=== PATIENT | female | born 1960 | race Caucasian/White ===

== ENCOUNTER 2024-04-10 10:51 | Inpatient (IN) | payer BC ==
--- OUTSIDE RECORDS SUMMARY | 2024-04-10 10:54 | XMS REPORT | Continuity of Care Document ---
Author Name Unknown Address [address] [place] [address] thconnect Address [address] [place] [address] [address] [place] [address] Care Team Providers Care Ticket Writer Name Role Phone A_Byrd Attending Clinician Unavailable GERONIMO RODRIGUEZ Attending Clinician Unavailable A_Byrd Admitting Clinician Unavailable Payers Payer Name Policy Type Policy Number Effective Date Expirati on Date Source [place] [id number] 2022 00:00:00 [place] [id number] 2015 00:00:00 Problems Condition Name Condition Details Condition Category Status Onset Date Resolution Date Last Treatment Date Treating Clinician Comments Source Diabetic peripheral neuropathy Diabetic Peripheral Neuropathy Problem Active 03-14 00:00: 00 [facility] Type 2 diabetes mellitus without complicati on Type 2 Diabetes Mellitus without Complicati on Problem Active 05-08 00:00: 00 [facility] Mixed hyperlipid emia Mixed Hyperlipid emia Problem Active 2022-02 00:00: 00 [facility] Uncontroll ed type 2 diabetes mellitus Uncontroll ed Type 2 Diabetes Mellitus Problem Active 2022-02 2 00:00: 00 [facility] Adult health examinatio n Adult Health Examinatio n Problem Active 07-19 00:00: 00 [facility] Neuropathy Neuropathy Problem Active 06-08 00:00: 00 [facility] Restless legs Restless Legs Problem Active [facility] Benign hypertensi on Benign Hypertensi on Problem Active [facility] Osteoarthr itis of knee Osteoarthr itis of Knee Problem Active [facility] Social History Smoking Status Start Date Stop Date Source Never Smoker [facility] Medications Ordered Medication Name Filled Medication Name Start Date Stop Date Current Medication? Ordering Clinician Indication Dosage Frequency Signature (SIG) Comments Components Source amitriptyli ne 25 mg tablet TAKE ONE (1) TABLET(S) BY MOUTH AT BEDTIME. amitriptyli ne 25 mg tablet TAKE ONE (1) TABLET(S) BY MOUTH AT BEDTIME. No amitriptyl ine 25 mg tablet TAKE ONE (1) TABLET(S) BY MOUTH AT BEDTIME. [facility] atorvastati n 10 mg tablet TAKE ONE (1) TABLET(S) BY MOUTH EVERY DAY. atorvastati n 10 mg tablet TAKE ONE (1) TABLET(S) BY MOUTH EVERY DAY. No atorvastat in 10 mg tablet TAKE ONE (1) TABLET(S) BY MOUTH EVERY DAY. [facility] carbidopa ER 25 mg-levodopa 100 mg tablet,exte nded release TAKE TWO (2) TABLET(S) BY MOUTH DAILY. carbidopa ER 25 mg-levodopa 100 mg tablet,exte nded release TAKE TWO (2) TABLET(S) BY MOUTH DAILY. No carbidopa ER 25 mg-levodop a 100 mg tablet,ext ended release TAKE TWO (2) TABLET(S) BY MOUTH DAILY. [facility] carvedilol 12.5 mg tablet TAKE ONE (1) TABLET(S) BY MOUTH TWICE A DAY. carvedilol 12.5 mg tablet TAKE ONE (1) TABLET(S) BY MOUTH TWICE A DAY. No carvedilol 12.5 mg tablet TAKE ONE (1) TABLET(S) BY MOUTH TWICE A DAY. [facility] diclofenac sodium 75 mg tablet,kevin yed release TAKE ONE (1) TABLET(S) BY MOUTH TWICE A DAY. diclofenac sodium 75 mg tablet,kevin yed release TAKE ONE (1) TABLET(S) BY MOUTH TWICE A DAY. No diclofenac sodium 75 mg tablet,del ayed release TAKE ONE (1) TABLET(S) BY MOUTH TWICE A DAY. [facility] gabapentin 600 mg tablet TAKE ONE (1) TABLET(S) BY MOUTH FOUR TIMES A DAY. gabapentin 600 mg tablet TAKE ONE (1) TABLET(S) BY MOUTH FOUR TIMES A DAY. No gabapentin 600 mg tablet TAKE ONE (1) TABLET(S) BY MOUTH FOUR TIMES A DAY. [facility] lidocaine 5 % topical patch APPLY 1 PATCH BY TRANSDERMAL ROUTE ONCE DAILY (MAY WEAR UP TO 12HOURS.) lidocaine 5 % topical patch APPLY 1 PATCH BY TRANSDERMAL ROUTE ONCE DAILY (MAY WEAR UP TO 12HOURS.) No lidocaine 5 % topical patch APPLY 1 PATCH BY TRANSDERMA L ROUTE ONCE DAILY (MAY WEAR UP TO 12HOURS.) [facility] morphine ER 30 mg tablet,exte nded release TAKE ONE (1) TABLET BY MOUTH TWO TO THREE TIMES A DAY NEEDED. morphine ER 30 mg tablet,exte nded release TAKE ONE (1) TABLET BY MOUTH TWO TO THREE TIMES A DAY NEEDED. No morphine ER 30 mg tablet,ext ended release TAKE ONE (1) TABLET BY MOUTH TWO TO THREE TIMES A DAY NEEDED. [facility] glipizide 10 mg tablet TAKE ONE (1) TABLET(S) BY MOUTH TWICE A DAY. glipizide 10 mg tablet TAKE ONE (1) TABLET(S) BY MOUTH TWICE A DAY. No glipizide 10 mg tablet TAKE ONE (1) TABLET(S) BY MOUTH TWICE A DAY. [facility] Januvia 100 mg tablet TAKE ONE (1) TABLET(S) BY MOUTH ONCE A DAY. Januvia 100 mg tablet TAKE ONE (1) TABLET(S) BY MOUTH ONCE A DAY. No Januvia 100 mg tablet TAKE ONE (1) TABLET(S) BY MOUTH ONCE A DAY. [facility] FreeStyle Carrie 3 Sensor device USE DIRECTED TO MONITOR BLOOD SUGAR AND CHANGE SENSOR EVERY 14 DAYS. FreeStyle Carrie 3 Sensor device USE DIRECTED TO MONITOR BLOOD SUGAR AND CHANGE SENSOR EVERY 14 DAYS. No FreeStyle Carrie 3 Sensor device USE DIRECTED TO MONITOR BLOOD SUGAR AND CHANGE SENSOR EVERY 14 DAYS. [facility] glipizide 5 mg tablet TAKE ONE (1) TABLET(S) BY MOUTH TWICE A DAY. glipizide 5 mg tablet TAKE ONE (1) TABLET(S) BY MOUTH TWICE A DAY. No glipizide 5 mg tablet TAKE ONE (1) TABLET(S) BY MOUTH TWICE A DAY. [facility] Ozempic 0.25 mg or 0.5 mg (2 mg/1.5 mL) subcutaneou s pen injector Inject 0.5 mg every week by subcutaneou s route. Ozempic 0.25 mg or 0.5 mg (2 mg/1.5 mL) subcutaneou s pen injector Inject 0.5 mg every week by subcutaneou s route. No .5mg Q1W Ozempic 0.25 mg or 0.5 mg (2 mg/1.5 mL) subcutaneo us pen injector Inject 0.5 mg every week by subcutaneo us route. [facility] Ozempic 0.25 mg or 0.5 mg (2 mg/3 mL) subcutaneou s pen injector INJECT 0.5 MG UNDER THE SKIN ONCE EVERY WEEK. Ozempic 0.25 mg or 0.5 mg (2 mg/3 mL) subcutaneou s pen injector INJECT 0.5 MG UNDER THE SKIN ONCE EVERY WEEK. No Ozempic 0.25 mg or 0.5 mg (2 mg/3 mL) subcutaneo us pen injector INJECT 0.5 MG UNDER THE SKIN ONCE EVERY WEEK. [facility] Ozempic 1 mg/dose (2 mg/1.5 mL) subcutaneou s pen injector Inject 1 mg every week by subcutaneou s route as directed. Ozempic 1 mg/dose (2 mg/1.5 mL) subcutaneou s pen injector Inject 1 mg every week by subcutaneou s route as directed. No 1mg Q1W Ozempic 1 mg/dose (2 mg/1.5 mL) subcutaneo us pen injector Inject 1 mg every week by subcutaneo us route as directed. [facility] Ozempic 1 mg/dose (4 mg/3 mL) subcutaneou s pen injector INJECT ONE (1) MG BY SUBCUTANEOU S ONCE A WEEK. Ozempic 1 mg/dose (4 mg/3 mL) subcutaneou s pen injector INJECT ONE (1) MG BY SUBCUTANEOU S ONCE A WEEK. No Ozempic 1 mg/dose (4 mg/3 mL) subcutaneo us pen injector INJECT ONE (1) MG BY SUBCUTANEO US ONCE A WEEK. [facility] Immunizations Ordered Immunization Name Filled Immunization Name Date Status Comments Source influenza, injectable, quadrivalent, preservative free influenza, injectable, quadrivalent, preservative free Unknown Completed [facility] influenza, injectable, quadrivalent influenza, injectable, quadrivalent Unknown Completed [facility] Vital Signs Vital Name Observation Time Observation Value Comments Yuval chamberlain Body Weight 2024-03-14 00:00:00 2932.8 [oz_av] [facility] Height 2024-03-14 00:00:00 66 [in_i] [facility] BMI (Body Mass Index) 2024-03-14 00:00:00 29.6 kg/m2 [facility] BP Systolic 2024-03-14 00:00:00 141 mm[Hg] [facility] BP Diastolic 2024-03-14 00:00:00 87 mm[Hg] [facility] BMI (Body Mass Index) 2023-12-13 00:00:00 30.5 kg/m2 [facility] Body Weight 2023-12-13 00:00:00 3022.4 [oz_av] [facility] Height 2023-12-13 00:00:00 66 [in_i] [facility] BP Diastolic 2023-12-13 00:00:00 83 mm[Hg] [facility] BP Systolic 2023-12-13 00:00:00 161 mm[Hg] [facility] BP Diastolic 2023-09-12 00:00:00 78 mm[Hg] [facility] Body Weight 2023-09-12 00:00:00 3068.8 [oz_av] [facility] BP Systolic 2023-09-12 00:00:00 141 mm[Hg] [facility] Height 2023-09-12 00:00:00 66 [in_i] [facility] BMI (Body Mass Index) 2023-09-12 00:00:00 31 kg/m2 [facility] BMI (Body Mass Index) 2023-05-09 00:00:00 30.6 kg/m2 [facility] BP Diastolic 2023-05-09 00:00:00 78 mm[Hg] [facility] Height 2023-05-09 00:00:00 66 [in_i] [facility] Body Weight 2023-05-09 00:00:00 3036.8 [oz_av] [facility] BP Systolic 2023-05-09 00:00:00 143 mm[Hg] [facility] Body Weight 2023-01-10 00:00:00 3060.8 [oz_av] [facility] BP Diastolic 2023-01-10 00:00:00 77 mm[Hg] [facility] BMI (Body Mass Index) 2023-01-10 00:00:00 30.9 kg/m2 [facility] BP Systolic 2023-01-10 00:00:00 147 mm[Hg] [facility] Height 2023-01-10 00:00:00 66 [in_i] [facility] BP Diastolic 2022-12-13 00:00:00 92 mm[Hg] [facility] BP Systolic 2022-12-13 00:00:00 171 mm[Hg] [facility] Body Weight 2022-12-13 00:00:00 3068.8 [oz_av] [facility] BMI (Body Mass Index) 2022-12-13 00:00:00 31 kg/m2 [facility] Height 2022-12-13 00:00:00 66 [in_i] [facility] BP Diastolic 2021-11-10 00:00:00 105 mm[Hg] [facility] BP Systolic 2021-11-10 00:00:00 181 mm[Hg] [facility] Body Weight 2021-11-10 00:00:00 3196.8 [oz_av] [facility] BP Diastolic 2020-07-09 00:00:00 95 mm[Hg] [facility] Height 2020-07-09 00:00:00 66 [in_i] [facility] BMI (Body Mass Index) 2020-07-09 00:00:00 32.8 kg/m2 [facility] BP Systolic 2020-07-09 00:00:00 155 mm[Hg] [facility] Body Weight 2020-07-09 00:00:00 3251.2 [oz_av] [facility] BP Diastolic 2019-08-22 00:00:00 106 mm[Hg] [facility] Height 2019-08-22 00:00:00 66 [in_i] [facility] BP Systolic 2019-08-22 00:00:00 186 mm[Hg] [facility] Body Weight 2019-08-22 00:00:00 3408 [oz_av] [facility] Procedures Procedure Date / Time Performed Performing Clinicia n Source MAMMO, screening, digital, bilateral 2024-03-14 00:00:00 [facility] MAMMO, screening, digital, bilateral 2022-12-13 00:00:00 [facility] Encounters Start Date/Time End Date/Time Encounter Type Admission Type Attending [facility] Care Facility Care Department Encounter ID Source 2024-03-14 00:00:00 2024-03-14 00:00:00 Geronimo Rodriguez MD: [address], [address], [place] [id number] , Ph. MM[facility] [id number] [facility] 2023-12-13 00:00:00 2023-12-13 00:00:00 Geronimo Rodriguez MD: [address], [address], [place] [id number] , Ph. MMG [facility] [id number] [facility] 2023-09-12 00:00:00 2023-09-12 00:00:00 Geronimo Rodriguez MD: [address] [facility], [address], [place] [id number] , Ph. MMG [facility] 0806 [facility] 2023-05-09 00:00:00 2023-05-09 00:00:00 Geronimo Rodriguez MD: [address] [facility], [address], [place] [address] , [facility]. [facility] [id number] [facility] 2023-05-06 00:00:00 2023-05-06 00:00:00 Outpatient A_Byrd [facility] [id number] [facility] 2023-04-20 00:00:00 2023-04-20 00:00:00 Outpatient A_Byrd [facility] [id number] [facility] 2023-04-18 08:13:00 2023-04-18 08:13:00 Outpatient GERONIMO LOCKWOOD [facility] [id number] [facility] 2023-01-12 00:00:00 2023-01-12 00:00:00 Outpatient A_Byrd [facility] [id number] [facility] 2023-01-10 00:00:00 2023-01-10 00:00:00 Outpatient A_Byrd MM[facility] [id number] [facility] 2023-01-10 00:00:00 2023-01-10 00:00:00 Geronimo Rodriguez MD: [address] [place] [address], [address], [place] [address] , Ph. [facility] [id number] [facility] 2022-12-13 09:57:00 2022-12-13 09:57:00 Outpatient GERONIMO LOCKWOOD [facility] [id number] [facility] 2022-12-13 00:00:00 2022-12-13 00:00:00 Outpatient A_Byrd [facility] [id number] [facility] 2022-12-13 00:00:00 2022-12-13 00:00:00 Geronimo Rodriguez MD: [address] [facility], [address], [place] [address] , Ph. [facility] [id number] [facility] 2022-12-08 00:00:00 2022-12-08 00:00:00 Outpatient A_Byrd [facility] [id number] [facility] 2021-11-10 00:00:00 2021-11-10 00:00:00 Outpatient A_Byrd [facility] [id number] [facility] 2021-11-10 00:00:00 2021-11-10 00:00:00 Geronimo Rodriguez MD: [address] [facility] [address], [place] [address] , Ph. [facility] [id number] [facility] 2021-11-08 00:00:00 2021-11-08 00:00:00 Outpatient A_Byrd [facility] [id number] [facility] 2021-10-12 00:00:00 2021-10-12 00:00:00 Outpatient A_Byrd [facility] [id number] [facility] 2020-09-24 01:31:00 2020-09-24 01:31:00 Outpatient A_Byrd [facility] [id number] [facility] 2020-08-20 02:14:00 2020-08-20 02:14:00 Outpatient A_Byrd [facility] [id number] [facility] 2020-07-17 01:03:00 2020-07-17 01:03:00 Outpatient A_Byrd [facility] [id number] [facility] 2020-07-09 04:55:00 2020-07-09 04:55:00 Outpatient A_Byrd [facility] [id number] [facility] 2020-07-09 00:00:00 2020-07-09 00:00:00 Geronimo Rodriguez MD: [address] [place] [address] [address] [id number] , Ph. [facility] [id number] [facility] 2019-12-25 02:33:00 2019-12-25 02:33:00 Outpatient A_Byrd [facility] [id number] [facility] 2019-11-05 03:57:00 2019-11-05 03:57:00 Outpatient A_Byrd [facility] [id number] [facility] 2019-08-22 05:46:00 2019-08-22 05:46:00 Outpatient A_Byrd [facility] [id number] [facility] 2019-08-22 00:00:00 2019-08-22 00:00:00 Geronimo Rodriguez MD: [address] [place] [address] [address], [place] [address] , Ph. [facility] [id number] [facility] 2019-08-13 09:29:00 2019-08-13 09:29:00 Outpatient A_Byrd [facility] [id number] [facility] 2017-07-19 10:14:00 2017-07-19 10:14:00 Outpatient GERONIMO LOCKWOOD [facility] [id number] [facility] 2015-11-24 11:12:00 2015-11-24 11:12:00 Outpatient GERONIMO LOCKWOOD [facility] [id number] [facility] Results Test Description Test Time Test Comments Results Result Co mments Source FASTING:[facility] [id number] 16:36:00* Test Item Value Reference Range Interpretation Comme nts CREATININE, RANDOM URINE (test code = 35611164) 38 mg/dL 20-275 N ALBUMIN, URINE (test code = 93264771) 0.6 mg/dL N Reference RangeN ot established ALBUMIN/CREATIN INE RATIO, RANDOM URINE (test code = 33598237) 16 mg/g creat <30 N The ADA defines abnormalities in albuminexcretion as follows: Albuminuria Category Result (mg/g creatinine) Normal to Mildly increased <30Moderately increased 30-299 Severely increased > OR = 300 The ADA recommends that at least two of threespecimens collected within a 3-6 month period beabnormal before considering a patient to bewithin a diagnostic category. SPLIT 11/27/2023 FROM [id number] GRENADALIPID [id number] 23:13:00* Test Item Value Reference Range Interpretation Comme nts CHOLESTEROL, TOTAL (test code = 31953610) 154 mg/dL <200 N HDL CHOLESTEROL (test code = 13194685) 41 mg/dL >=50 L TRIGLYCERIDES (test code = 72068874) 185 mg/dL <150 H LDL-CHOLESTEROL (test code = 09133160) 85 mg/dL (calc) N Reference range: <100 Desirable range <100 mg/dL for primary prevention; <70 mg/dL for patients with CHD or diabetic patients with > or = 2 CHD risk factors. LDL-C is now calculated using the Vincenzo-Cortes calculation, which is a validated novel method providing better accuracy than the Friedewald equation in the estimation of LDL-C. Vincenzo SS et al. LEAH. 2013;310(19): 7687-2458 (http://education.[employer]Minteos /faq/ROF777) CHOL/HDLC RATIO (test code = 74917357) 3.8 (calc) <5.0 N NON HDL CHOLESTEROL (test code = 81046277) 113 mg/dL (calc) <130 N For patients with diabetes plus 1 major ASCVD risk factor, treating to a non-HDL-C goal of <100 mg/dL (LDL-C of <70 mg/dL) is considered a therapeutic option. FASTING:YESPATIENT UNABLE TO VOID; ADVISED TO RETURN FOR COLLECTION.[facility]NADACOMP META [id number] 23:13:00* Test Item Value Reference Range Interpretation Comme nts GLUCOSE (test code = 79449814) 213 mg/dL 65-99 H Fasting referenc e interval For someone without known diabetes, a glucosevalue >125 mg/dL indicates that they may havediabetes and this should be confirmed with afollow-up test. UREA NITROGEN (BUN) (test code = 69219450) 18 mg/dL 7-25 N CREATININE (test code = 58581144) 0.54 mg/dL 0.50-1.05 N EGFR (test code = 08052671) 105 mL/min/1.73m2 >=60 N BUN/CREATININE RATIO (test code = 94930319) SEE NOTE: (calc) 6-22 N Not Reported: BUN and Creatinine are within reference range. SODIUM (test code = 98819700) 136 mmol/L 135-146 N POTASSIUM (test code = 99215956) 4.5 mmol/L 3.5-5.3 N CHLORIDE (test code = 60714240) 101 mmol/L 98-110 N CARBON DIOXIDE (test code = 53805928) 28 mmol/L 20-32 N CALCIUM (test code = 17787464) 9.2 mg/dL 8.6-10.4 N PROTEIN, TOTAL (test code = 13273048) 6.3 g/dL 6.1-8.1 N ALBUMIN (test code = 25605553) 3.5 g/dL 3.6-5.1 L GLOBULIN (test code = 92257999) 2.8 g/dL (calc) 1.9-3.7 N ALBUMIN/GLOBULIN RATIO (test code = 49529695) 1.3 (calc) 1.0-2.5 N BILIRUBIN, TOTAL (test code = 57120510) 0.4 mg/dL 0.2-1.2 N ALKALINE PHOSPHATASE (test code = 54630443) 68 U/L 37-153 N AST (test code = 53351786) 7 U/L 10-35 L ALT (test code = 13433917) 5 U/L 6-29 L FASTING:YESPATIENT UNABLE TO VOID; ADVISED TO RETURN FOR COLLECTION.[facility]NADAHEMOGLOBIN [id number] 23:13:00* Test Item Value Reference Range Interpretation Comme nts HEMOGLOBIN A1c (test code = 46569673) 9.4 % of total Hgb <5.7 H For someone without known diabetes, a hemoglobin T3edektu of 6.5% or greater indicates that they may have diabetes and this should be confirmed with a follow-up test. For someone with known diabetes, a value <7% indicates that their diabetes is well controlled and a value greater than or equal to 7% indicates suboptimal control. A1c targets should be individualized based on duration of diabetes, age, comorbid conditions, and other considerations. Currently, no consensus exists regarding use ofhemoglobin A1c for diagnosis of diabetes for children. FASTING:YESPATIENT UNABLE TO VOID; ADVISED TO RETURN FOR COLLECTION.[facility]DAHEMOGLOBIN [id number] 23:28:00* Test Item Value Reference Range Interpretation Comments HEMOGLOBIN A1c (test code = 95574194) 9.5 % of total Hgb <5.7 H For someone without known diabetes, a hemoglobin Z2ibmlyk of 6.5% or greater indicates that they may have diabetes and this should be confirmed with a follow-up test. For someone with known diabetes, a value <7% indicates that their diabetes is well controlled and a value greater than or equal to 7% indicates suboptimal control. A1c targets should be individualized based on duration of diabetes, age, comorbid conditions, and other considerations. Currently, no consensus exists regarding use ofhemoglobin A1c for diagnosis of diabetes for children. This test was performed on the Kelechi annemarie c503 platform.Effective 12/19/22, a change in test platforms from theGravity Jack to the Kelechi annemarie c503 may have [id number] results compared to historical results.Based [facility], the Kelechi platform relative to the SCIenergy had an average increase in HbA1c value of< or = 0.3%. This difference is within accepted variability established by the National GlycohemoglobinStandardization Program. Note that not all individualswill have had a shift in their results and directcomparisons between historical and current results fortesting conducted on different platforms is notrecommended. FASTING:[facility] [id number] 11:21:00* Test Item Value Reference Range Interpretation Comme nts Hemoglobin A1c/Hemoglobin.to greg in Blood (test code = 4548-4) 8.8 % 4.0-6.0 H [facility] - Serum or Plasma 2023-04-18 11:05:00* Test Item Value Reference Range Interpretation Comme nts glucose (test code = glucose) 248 mg/dL 82-115 H blood urea nitrogen (test co de = blood urea nitrogen) 12 mg/dL 8-23 osmolality calculated,serum (test code = osmolality calculated,serum) 280 mOsm/kg 280-300 creatinine (test code = creatinine) 0.50 mg/dL 0.50-0.90 glomerular filtration rate ( test code = glomerular filtration rate) > 60.00 BUN/creatinine ratio (test c ode = BUN/creatinine ratio) 24.0 12.0-20.0 H sodium level (test code = so dium level) 136 mmol/L 135-145 potassium level (test code = potassium level) 4.5 mmol/L 3.5-5.2 chloride level (test code = chloride level) 99 mmol/L 98-108 CO2 (test code = CO2) 26 mmol/L 21-32 anion gap (test code = anion gap) 15.5 mEq/L 12.0-20.0 calcium level (test code = calcium level) 9.6 mg/dL 8.8-10.2 total protein (test code = t otal protein) 7.3 g/dL 6.6-8.7 albumin (test code = albumin) 4.0 g/dL 3.5-5.2 globulin (test code = globulin) 3.3 g/dL 1.5-4.5 A/G ratio (test code = A/G ratio) 1.2 >1.0 bilirubin,total (test code = bilirubin,total) 0.6 mg/dL 0.0-1.2 AST/SGOT (test code = AST/SGOT) 9 U/L 15-32 L ALT/SGPT (test code = ALT/SGPT) 6 U/L 0-33 alkaline phosphatase, total (test code = alkaline phosphatase, total) 80 U/L 35-105 [facility] [id number] 11:05:00* Test Item Value Reference Range Interpretation Comme nts cholesterol level (test code = cholesterol level) 170 mg/dL 150-200 triglycerides level (test co de = triglycerides level) 172 mg/dL <150 H HDL cholesterol (test code = HDL cholesterol) 45 mg/dL >65 L Cholesterol in LDL [Mass/vol ume] in Serum or Plasma (test code = 2089-1) 108 mg/dL <100 H cholesterol risk ratio (test code = cholesterol risk ratio) 3.777 [facility] [Mass/volume] in [id number] 00:00:00* Test Item Value Reference Range Interpretation Comme nts microalbumin random (test co de = microalbumin random) < 12.0 0-20 [facility] stimulating hormone [id number] 12:31:00* Test Item Value Reference Range Interpretation Comme nts thyroid stimulating hormone L (test code = thyroid stimulating hormone L) 0.23 uIU/mL 0.36-3.74 L [facility]ine pres id [id number] 12:26:00* Test Item Value Reference Range Interpretation Comme [facility] culture,urine (test code = culture,urine) specimen has been received in lab and IS in progress. [facility] [id number] 12:17:00* Test Item Value Reference Range Interpretation Comme [facility] Hemoglobin A1c/Hemoglobin.to greg in Blood (test code = 4548-4) 11.0 % 4.0-6.0 [facility] - Serum or Plasma 2022-12-13 12:13:00* Test Item Value Reference Range Interpretation Comme [facility] glucose (test code = glucose) 332 mg/dL 82-115 H blood urea nitrogen (test co de = blood urea nitrogen) 15 mg/dL 8-23 osmolality calculated,serum (test code = osmolality calculated,serum) 282 mOsm/kg 280-300 creatinine (test code = creatinine) 0.53 mg/dL 0.50-0.90 glomerular filtration rate ( test code = glomerular filtration rate) > 60.00 BUN/creatinine ratio (test c ode = BUN/creatinine ratio) 28.3 12.0-20.0 H sodium level (test code = so dium level) 134 mmol/L 135-145 L potassium level (test code = potassium level) 4.3 mmol/L 3.5-5.2 chloride level (test code = chloride level) 99 mmol/L 98-108 CO2 (test code = CO2) 25 mmol/L 21-32 anion gap (test code = anion gap) 14.3 mEq/L 12.0-20.0 calcium level (test code = calcium level) 9.4 mg/dL 8.8-10.2 total protein (test code = t otal protein) 6.8 g/dL 6.6-8.7 albumin (test code = albumin) 3.8 g/dL 3.5-5.2 globulin (test code = globulin) 3.0 g/dL 1.5-4.5 A/G ratio (test code = A/G ratio) 1.3 >1.0 bilirubin,total (test code = bilirubin,total) 0.5 mg/dL 0.0-1.2 AST/SGOT (test code = AST/SGOT) 8 U/L 15-32 L ALT/SGPT (test code = ALT/SGPT) 9 U/L 0-33 alkaline phosphatase, total (test code = alkaline phosphatase, total) 86 U/L 35-105 [facility] [id number] 12:13:00* Test Item Value Reference Range Interpretation Comme nts cholesterol level (test code = cholesterol level) 178 mg/dL 150-200 triglycerides level (test co de = triglycerides level) 232 mg/dL <150 H HDL cholesterol (test code = HDL cholesterol) 49 mg/dL >65 L Cholesterol in LDL [Mass/vol ume] in Serum or Plasma (test code = 2089-1) 114 mg/dL <100 H cholesterol risk ratio (test code = cholesterol risk ratio) 3.632 [id number] 11:37:00* Test Item Value Reference Range Interpretation Comme nts color, urine (test code = color, urine) light yellow appearance, urine (test code = appearance, urine) clear clear urine glucose (test code = urine glucose) 4+ (1000 mg/dL) negative bilirubin, urine (test code = bilirubin, urine) negative negative ketone, urine (test code = ketone, urine) negative negative specific gravity,urine (test code = specific gravity,urine) 1.040 1.003-1.030 H blood urine (test code = blood urine) negative negative pH,urine (test code = pH,urine) 5.000 5-9 protein urine (UA) (test cod e = protein urine (UA)) negative negative urobilinogen, urine (test code = urobilinogen, urine) normal 0.2-1.0 nitrate, urine (test code = nitrate, urine) negative negative urine leukocyte esterase (test code = urine leukocyte esterase) 1+ negative A urine culture added? (test code = urine culture added?) yes [facility] W Auto Differential panel - [id number] 11:24:00 * Test Item Value Reference Range Interpretation Comme nts white blood count (test code = white blood count) 10.9 K/uL 4.0-11.5 red blood count (test code = red blood count) 4.37 M/uL 3.80-5.20 hemoglobin (test code = hemoglobin) 13.9 g/dL 10.5-15.7 hematocrit (test code = hematocrit) 40.2 % 34.0-50.0 mean corpuscular volume (sheila t code = mean corpuscular volume) 92.0 fL 86.0-100.0 mean corpuscular hemoglobin (test code = mean corpuscular hemoglobin) 31.8 pg 26.2-33.4 mean corpuscular HGB conc (t est code = mean corpuscular HGB conc) 34.6 g/dL 30.0-34.0 H red cell distribution width (test code = red cell distribution width) 12.3 % 12.0-15.5 platelet count (test code = platelet count) 250 K/uL 165-450 mean platelet volume (test c ode = mean platelet volume) 9.8 fL 9.4-12.6 neutrophils % (test code = neutrophils %) 74.3 % 44.4-80.1 Ig% (test code = Ig%) 0.4 % 0.0-0.4 lymphocyte% (test code = lymphocyte%) 18.0 % 10.0-50.0 mono % (test code = mono %) 5.2 % 3.6-12.0 eos % (test code = eos %) 1.7 % 0.0-5.4 basophil % (test code = baso tracy %) 0.4 % 0.1-1.2 absolute neutrophil count (t est code = absolute neutrophil count) 8.09 K/uL 1.56-6.13 H Ig# (test code = Ig#) 0.04 K/uL 0.00-0.03 H lymph # (test code = lymph #) 1.96 K/uL 1.18-3.74 mono # (test code = mono #) 0.57 K/uL 0.24-0.86 eos # (test code = eos #) 0.19 K/uL 0.04-0.36 basophil # (test code = baso tracy #) 0.04 K/uL 0.01-0.08 NRBC% (test code = NRBC%) 0 /100 WBC 0-0.2 NRBC# (test code = NRBC#) 0 K/uL [facility]
[2024-04-10 12:15] LABS: Absolute Basophils 0.1 K/uL (0-0.5); Absolute Eosinophils 0.1 K/uL (0-0.5); Absolute Lymphocytes (CBC) 2.1 K/uL (0.7-4.9); Absolute Monocytes 0.5 K/uL (0.1-1.3); Absolute Neutrophil 7.9 K/uL (1.8-8.0); Basophils % 0.8 % (0-1.3); Eosinophils % 0.7 % (0-4.4); Hematocrit 35.2 % (36.0-45.0); Hemoglobin 12.3 g/dL (12.0-15.0); Lymphocytes % 19.5 % (15.3-44.8); MCH 32.8 pg (27.0-35.0); MCHC 34.9 g/dL (32.0-36.0); MCV 93.9 fL (80-100); MPV 7.4 fL (7.6-11.3); Platelets 306 thou/uL (152-406); RBC Red Blood Cell Count 3.75 M/uL (3.86-4.86); Red Cell Distribution Width 13.6 % (12.1-15.2)
[2024-04-10 12:21] LABS: PT Prothrombin Time 13.8 SECONDS (10.0-13.0); Protime INR 1.22
[2024-04-10 12:36] LABS: AST/SGOT 11 U/L (15-37); Albumin 2.7 g/dL (3.4-5.0); Albumin/Globulin Ratio 0.6 (1.1-1.8); Alkaline Phosphatase 91 U/L (45-117); Anion Gap 6.5 mEq/L (5.0-15.0); BUN Blood Urea Nitrogen 15 mg/dL (7-18); Bicarbonate 26 mEq/L (21-32); Bilirubin Direct 0.2 mg/dL (0-0.2); Bilirubin Indirect, Calculated 0.3 mg/dL (0.2-0.8); Bilirubin Total 0.5 mg/dL (0.2-1.0); Globulin 4.3 g/dL (2.3-3.5); Glomerular Filtration Rate 99 ml/min (=/>90); Glucose Level 157 mg/dL (74-106); Magnesium 1.8 mg/dL (1.6-2.4); NT PRO-BNP 839 pg/mL (<125); Potassium 3.5 mEq/L (3.5-5.1); Sodium Level 136 mEq/L (136-145)
[2024-04-10 12:48] LABS: ALT/SGPT < 14 U/L (13-56)
[2024-04-10 12:49] LABS: Troponin High Sensitivity 2587.7 pg/mL (<58.9)
[2024-04-10] MEDS ORDERED: NA CHLORIDE 0.9% 500 ML ONE (12:54)
--- NOTE | 2024-04-10 12:55 | RAD REPORT ---
EXAMINATION: XR Foot Left 3 View CLINICAL INDICATION: Female, 63 years old. [facility] PAIN Bed: TECHNIQUE: 3 view radiographs of the left foot were obtained. COMPARISON: No prior exam. FINDINGS: No evidence of fracture or dislocation. Osseous lucency involving the tuft of the big toe d istal phalanx as well as its lateral base. Soft tissue swelling about the big toe. No appreciable soft tissue gas. Moderate calcaneal spur. Scattered degenerative changes up to moderate, involving th e interphalangeal joints and midfoot articulations . IMPRESSION: Osseous lucency involving the big toe distal phalanx at the tuft and the lateral base, would raise co ncern for osteomyelitis. MRI would provide improved sensitivity for such evaluation.
[2024-04-10] MEDS ORDERED: NA CHLORIDE 0.9% 250 ML ONE (13:56)
[2024-04-10] MEDS ORDERED: METOPROLOL XL 50 MG TAB PO ONE (13:56)
[2024-04-10] MEDS ORDERED: VANCOMYCIN 1 GM/VIAL ONE (13:56)
[2024-04-10] MEDS ORDERED: FAMOTIDINE 20 MG/2 ML VIAL IV ONE (13:56)
[2024-04-10] MEDS ORDERED: ENOXAPARIN 80 MG/0.8 ML SQ ONE (13:56)
[2024-04-10] MEDS ORDERED: ASPIRIN 325 MG TAB ONE (13:56)
[2024-04-10] MEDS ORDERED: NA CHLORIDE 0.9% 100 ML ONE (13:56)
[2024-04-10] MEDS ORDERED: PIPERACIL/TAZO 3.375 GM VIAL IV ONE (13:57)
--- NOTE | 2024-04-10 14:02 | EDPHYS ---
Physician Documentation [facility] Name: Mercedes Harley Age: 63 yrs Sex: Female : 1960 Arrival Date: 04/10/2024 Time: 10:51 Bed 19 Private MD: ED Physician Ifeanyi Small HPI: 04/10 13:54 This 63 yrs old Female presents to ER via Ambulatory with complaints of foot praveena infection. 13:54 The patient presents with pain, swelling, tenderness. The complaints affect the dorsum praveena of left foot. Context: The problem was sustained at an unknown site, resulted from an unknown cause, the patient can fully bear weight. Modifying factors: The symptoms are alleviated by remaining still, the symptoms are aggravated by movement. Associated signs and symptoms: The patient has no apparent associated signs or symptoms. Severity of symptoms: At their worst the symptoms were moderate, in the emergency department the symptoms are unchanged. The patient has experienced similar episodes in the past, several times. Historical: - Allergies: 11:08 No Known Allergies; cm10 - Home Meds: 11:08 Ozempic subcutaneous [Active]; glipizide 10 mg Oral tablet 1 tab 2 times per day cm10 [Active]; morphine 30 mg Oral tablet, extended release 1 tab every 8 hours [Active]; carbidopa-levodopa 25-100 mg Oral tablet 2 tabs [Active]; carvedilol 12.5 mg oral tablet 1 tab 2 times per day [Active]; amitriptyline 25 mg Oral tablet 1 tab daily [Active]; diclofenac sodium 75 mg oral tablet, delayed release (enteric coated) [Active]; gabapentin 600 mg oral tablet 1 tab 3 times per day [Active]; - PMHx: 11:08 Diabetes mellitus; Hypertensive disorder; Neuropathy; cm10 - Immunization history:: Adult Immunizations up to date. - Infectious Disease History:: Denies. - Social history:: Smoking status: Patient/guardian denies using tobacco, the patient reports quitting approximately 1 years ago. - Family history:: not pertinent. ROS: 13:54 Constitutional: Negative for fever, chills, and weight loss, Eyes: Negative for injury, praveena pain, redness, and discharge, ENT: Negative for injury, pain, and discharge, Neck: Negative for injury, pain, and swelling, Cardiovascular: Negative for chest pain, palpitations, and edema, Respiratory: Negative for shortness of breath, cough, wheezing, and pleuritic chest pain, Abdomen/GI: Negative for abdominal pain, nausea, vomiting, diarrhea, and constipation, Back: Negative for injury and pain, : Negative for injury, bleeding, discharge, and swelling, Skin: Negative for injury, rash, and discoloration, Neuro: Negative for headache, weakness, numbness, tingling, and seizure, Psych: Negative for depression, anxiety, suicide ideation, homicidal ideation, and hallucinations, Allergy/Immunology: Negative for hives, rash, and allergies, Endocrine: Negative for neck swelling, polydipsia, polyuria, polyphagia, and marked weight changes, Hematologic/Lymphatic: Negative for swollen nodes, abnormal bleeding, and unusual bruising, 13:54 MS/extremity: Positive for decreased range of motion, pain, swelling, tenderness, of the medial aspect of left toes, Exam: 13:54 Constitutional: This is a well developed, well nourished patient who is awake, alert, praveena and in no acute distress. Head/Face: Normocephalic, atraumatic. Eyes: Pupils equal round and reactive to light, extra-ocular motions intact. Lids and lashes normal. Conjunctiva and sclera are non-icteric and not injected. Cornea within normal limits. Periorbital areas with no swelling, redness, or edema. ENT: Nares patent. No nasal discharge, no septal abnormalities noted. Tympanic membranes are normal and external auditory canals are clear. Oropharynx with no redness, swelling, or masses, exudates, or evidence of obstruction, uvula midline. Mucous membranes moist. Neck: Trachea midline, no thyromegaly or masses palpated, and no cervical lymphadenopathy. Supple, full range of motion without nuchal rigidity, or vertebral point tenderness. No Meningismus. Chest/axilla: Normal chest wall appearance and motion. Nontender with no deformity. No lesions are appreciated. Cardiovascular: Regular rate and rhythm with a normal S1 and S2. No gallops, murmurs, or rubs. Normal PMI, no JVD. No pulse deficits. Respiratory: Lungs have equal breath sounds bilaterally, clear to auscultation and percussion. No rales, rhonchi or wheezes noted. No increased work of breathing, no retractions or nasal flaring. Abdomen/GI: Soft, non-tender, with normal bowel sounds. No distension or tympany. No guarding or rebound. No evidence of tenderness throughout. Back: No spinal tenderness. No costovertebral tenderness. Full range of motion. Female : Normal external genitalia. Neuro: Awake and alert, GCS 15, oriented to person, place, time, and situation. Cranial nerves II-XII grossly intact. Motor strength 5/5 in all extremities. Sensory grossly intact. Cerebellar exam normal. Normal gait. Psych: Awake, alert, with orientation to person, place and time. Behavior, mood, and affect are within normal limits. 13:54 ECG was reviewed by the Attending Physician. 13:54 Musculoskeletal/extremity: ROM: limited active range of motion due to pain, limited passive range of motion due to pain, Circulation is intact in all extremities. Compartment Syndrome exam of affected extremity: is normal. DVT Exam: negative Homans' sign noted on exam, no appreciated bluish discoloration, pain, swelling, tenderness, erythema, increased warmth, Vital Signs: 11:07 BP 152 / 84; Pulse 99; Resp 18; Temp 98.2(O); Pulse Ox 98% on R/A; Weight 82.1 kg; cm10 Height 5 ft. 6 in. ; Pain 1/10; 13:14 BP 150 / 75; Pulse 92; Resp 18; Pulse Ox 100% on R/A; Pain 0/10; ld1 15:18 BP 150 / 73; Pulse 91; Resp 18; Pulse Ox 100% on R/A; ld1 11:07 Body Mass Index 29.21 (82.10 kg, 167.64 cm) cm10 11:07 Pain Scale: Adult cm10 13:14 Pain Scale: Adult ld1 Dong Coma Score: 13:54 Eye Response: spontaneous(4). Motor Response: obeys commands(6). Verbal Response: praveena oriented(5). Total: 15. MDM: 11:04 Medical Screening Exam initiated praveena 13:57 Differential diagnosis: closed fracture, contusion, abrasion, tendonitis. Data praveena reviewed: vital signs, nurses notes, lab test result(s), EKG, radiologic studies, plain films. Consideration of Admission/Observation Escalation of care including admission/observation considered. I considered the following discharge prescriptions or medication management in the emergency department Medications were administered in the Emergency Department. See MAR. Independent interpretation of the following test(s) in the Emergency Department EKG: See my EKG interpretation above. Test considered but Not performed: MRI: no mri left foot. Historians other than the Patient: pt well informed. Care significantly affected by the following chronic conditions: Diabetes, Hypertension, neuropathy. Counseling: I had a detailed discussion with the patient and/or guardian regarding the historical points, exam findings, and any diagnostic results supporting the discharge/admit diagnosis, lab results, radiology results, the need for further work-up and treatment in the hospital. 04/10 11:05 Order name: Basic Metabolic Panel; Complete Time: 13:32 praveena 04/10 11:05 Order name: CBC with Diff; Complete Time: 13:32 04/10 11:05 Order name: LFT's; Complete Time: 13:32 praveena 04/10 11:05 Order name: Magnesium; Complete Time: 13:32 04/10 11:05 Order name: NT PRO-BNP; Complete Time: 13:32 04/10 11:05 Order name: PT-INR; Complete Time: 13:32 04/10 11:05 Order name: Troponin HS; Complete Time: 13:32 praveena 04/10 11:05 Order name: Blood Culture Adult (2) 04/10 11:05 Order name: CRP; Complete Time: 13:32 praveena 04/10 11:05 Order name: Urinalysis w/ reflexes 04/10 11:05 Order name: Foot Left 3 View XRAY; Complete Time: 13:32 04/10 13:38 Order name: US Extremity Venous W Compression Jose Cruz 04/10 13:38 Order name: US LE Arterial Bilateral [facility] 04/10 11:05 Order name: EKG; Complete Time: 11:06 04/10 15:45 Order name: CONS Physician Consult EDIN 04/10 11:05 Order name: Cardiac monitoring; Complete Time: 13:14 praveena 04/10 11:05 Order name: EKG - Nurse/Tech; Complete Time: 13:14 praveena 04/10 11:05 Order name: IV Saline Lock; Complete Time: 12:08 praveena 04/10 11:05 Order name: Labs collected and sent; Complete Time: 12:08 04/10 11:05 Order name: O2 Per Protocol; Complete Time: 13:14 04/10 11:05 Order name: O2 Sat Monitoring; Complete Time: 13:14 praveena EC:54 Rate is 94 beats/min. Rhythm is regular. QRS Arab is Normal. OR interval is normal. QRS praveena interval is normal. QT interval is normal. No Q waves. T waves are Normal. No ST changes noted. Clinical impression: NSR w/ Non-specific ST/T Changes and No evidence of ischemia. Interpreted by me. Reviewed by me. Administered Medications: 13:14 Drug: NS 0.9% IV 500 ml 500 ml IV at 1 bolus once; to be given as a bolus over 30 ld1 minutes Volume: 500 ml; Route: IV; Rate: 1 bolus; Site: left antecubital; 15:14 Drug: Piperacillin-Tazobactam IVPB 3.375 grams IVPB once over 60 mins; (mix in NS 100 ld1 mL) Route: IVPB; Infused Over: 60 mins; Site: left antecubital; 15:14 Drug: Aspirin PO Chewable Tablet 324 mg PO once; 81 mg tablets x 4 Route: PO; ld1 15:14 Drug: Metoprolol PO 50 mg PO once Route: PO; ld1 15:17 Drug: Enoxaparin Sub-Q 1 mg/kg Sub-Q once Route: Sub-Q; Site: right upper arm; ld1 15:17 Drug: Famotidine IVP 20 mg IVP once; dilute with 10 mL 0.9% NaCl; give over 2 minutes ld1 Route: IVP; Site: right antecubital; 16:03 Drug: vancoMYCIN IVPB 1 grams IVPB once over 2 hrs Route: IVPB; Infused Over: 2 hrs; ld1 Site: left antecubital; Disposition Summary: 04/10/24 14:01 Hospitalization Ordered Notes: Hospitalization Status: Inpatient Admission praveena Provider: Dominik Padron cha Location: Telemetry/MedSurg (Inpatient) praveena Condition: Stable praveena Problem: new praveena Symptoms: have improved praveena Bed/Room Type: Standard praveena Room Assignment: 218(04/10/24 15:52) bd Diagnosis - Type 2 diabetes mellitus with foot ulcer praveena - Cellulitis of other parts of limb - left foot/ great toe praveena - Non ST elevation [place] praveena - Osteomyelitis, unspecified - left great toe praveena Forms: - Medication Reconciliation Form praveena - SBAR form praveena - Leadership Thank You Letter praveena Signatures: Dispatcher [employer] EDMS Nelly miles Ifeanyi Bojorquez MD MD cha Sims, Lauren, RN RN ld1 Florina Wilkins, RN RN cm10 Corrections: (The following items were deleted from the chart) 11:06 11:05 BASIC METABOLIC PANEL+C.LAB.BRZ ordered. EDMS EDMS 11: 11:05 CBC+H.LAB.BRZ ordered. EDMS EDMS : 11:05 HEPATIC FUNCTION+C.LAB.BRZ ordered. EDMS EDMS 11: 11:05 MAGNESIUM+C.LAB.BRZ ordered. EDMS EDMS 11: 11:05 PROBNP+C.LAB.BRZ ordered. EDMS EDMS : 11:05 PROTIME (+INR)+COAG.LAB.BRZ ordered. EDMS EDMS 11: 11:05 Troponin High Sensitivity+C.LAB.BRZ ordered. EDMS EDMS 11:06 11:05 BLOOD CULTURE*+BA.LAB.BRZ ordered. EDMS EDMS 11:06 11:05 C-REACTIVE PROTEIN+C.LAB.BRZ ordered. EDMS EDMS 11:28 11:05 Chest Single View+RAD.RAD.BRZ ordered. EDMS EDMS 13:38 13:38 Lower Extremity Arterial Bilat+US.RAD.BRZ ordered. EDMS EDMS 15:52 14:01 [facility]
--- NOTE | 2024-04-10 14:02 | ER ---
Nurse's Notes [facility] Name: Mercedes Harley Age: 63 yrs Sex: Female : 1960 Arrival Date: 04/10/2024 Time: 10:51 Bed 19 Private MD: Diagnosis: Type 2 diabetes mellitus with foot ulcer;Cellulitis of other parts of limb-left foot/ great toe;Non ST elevation GA;Osteomyelitis, unspecified-left great toe Presentation: 04/10 11:07 Chief complaint: Patient states: Redness and swelling to great toe on left foot. Pt cm10 states that she noticed it 1 week ago. 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 Coronavirus screen: Client denies travel out of the [place] in the last 14 days. Ebola Screen: Patient denies travel to an Ebola-affected area in the 21 days before illness onset. Initial Sepsis Screen: Does the patient meet any 2 criteria? HR > 90 bpm. Does the patient have a suspected source of infection? No. Patient's initial sepsis screen is negative. Risk Assessment: Do you want to hurt yourself or someone else? Patient reports no desire to harm self or others. Onset of symptoms was April 10, 2024 at 11:08. 11:07 Method Of Arrival: Ambulatory cm10 11:07 Acuity: TIFFANIE 3 cm10 Triage Assessment: 11:11 General: Appears in no apparent distress. comfortable, Behavior is calm, cooperative, cm10 appropriate for age. Pain: Complains of pain in left foot Pain currently is 1 out of 10 on a pain scale. Neuro: No deficits noted. Level of Consciousness is awake, alert, obeys commands, Oriented to person, place, time, situation, Appropriate for age. Respiratory: No deficits noted. Airway is patent Respiratory effort is even, unlabored, Respiratory pattern is regular, symmetrical. Derm: Wound noted left first toe. Historical: - Allergies: 11:08 No Known Allergies; cm10 - Home Meds: 11:08 Ozempic subcutaneous [Active]; glipizide 10 mg Oral tablet 1 tab 2 times per day cm10 [Active]; morphine 30 mg Oral tablet, extended release 1 tab every 8 hours [Active]; carbidopa-levodopa 25-100 mg Oral tablet 2 tabs [Active]; carvedilol 12.5 mg oral tablet 1 tab 2 times per day [Active]; amitriptyline 25 mg Oral tablet 1 tab daily [Active]; diclofenac sodium 75 mg oral tablet, delayed release (enteric coated) [Active]; gabapentin 600 mg oral tablet 1 tab 3 times per day [Active]; - PMHx: 11:08 Diabetes mellitus; Hypertensive disorder; Neuropathy; cm10 - Immunization history:: Adult Immunizations up to date. - Infectious Disease History:: Denies. - Social history:: Smoking status: Patient/guardian denies using tobacco, the patient reports quitting approximately 1 years ago. - Family history:: not pertinent. Screenin:14 [facility] ED Fall Risk Assessment (Adult) History of falling in the last 3 months, ld1 including since admission No falls in past 3 months (0 pts) Confusion or Disorientation No (0 pts) Intoxicated or Sedated No (0 pts) Impaired Gait No (0 pts) Mobility Assist Device Used No (0 pt) Altered Elimination No (0 pt) Score/Fall Risk Level 0 - 2 = Low Risk Oriented to surroundings, Hourly rounding (assess needs \T\ fall precautionary measures) done. Abuse screen: Denies threats or abuse. Denies injuries from another. Nutritional screening: No deficits noted. Tuberculosis screening: No symptoms or risk factors identified. Assessment: 12:56 General: Pt brought to room. Spoke with patient about importance of getting EKG done cm10 and patient continues to refuse and states that she would like to speak with provider first. Dr. Small and primary nurse made aware.. 13:14 Reassessment: Convinced patient to let me do EKG. Educated patient on results. General: ld1 Appears in no apparent distress. comfortable, Behavior is calm, cooperative, appropriate for age. Pain: Denies pain. Neuro: Level of Consciousness is awake, alert, obeys commands, Oriented to person, place, time, situation. Cardiovascular: Capillary refill < 3 seconds Patient's skin is warm and dry. Rhythm is sinus rhythm. Respiratory: Airway is patent Respiratory effort is even, unlabored. GI: Abdomen is round non-distended. : No signs and/or symptoms were reported regarding the genitourinary system. EENT: No signs and/or symptoms were reported regarding the EENT system. Derm: No signs and/or symptoms reported regarding the dermatologic system. 15:18 Reassessment: Patient appears in no apparent distress at this time. No changes from ld1 previously documented assessment. Patient and/or family updated on plan of care and expected duration. Pain level reassessed. Patient is alert, oriented x 3, equal unlabored respirations, skin warm/dry/pink. Vital Signs: 11:07 BP 152 / 84; Pulse 99; Resp 18; Temp 98.2(O); Pulse Ox 98% on R/A; Weight 82.1 kg; cm10 Height 5 ft. 6 in. ; Pain 1/10; 13:14 BP 150 / 75; Pulse 92; Resp 18; Pulse Ox 100% on R/A; Pain 0/10; ld1 15:18 BP 150 / 73; Pulse 91; Resp 18; Pulse Ox 100% on R/A; ld1 11:07 Body Mass Index 29.21 (82.10 kg, 167.64 cm) cm10 11:07 Pain Scale: Adult cm10 13:14 Pain Scale: Adult ld1 Dong Coma Score: 13:54 Eye Response: spontaneous(4). Motor Response: obeys commands(6). Verbal Response: praveena oriented(5). Total: 15. ED Course: 10:54 Patient arrived in ED. al6 11:04 Ifeanyi Small MD is Attending Physician. praveena 11:08 Triage completed. cm10 11:11 Arm band placed on left wrist. Patient placed in waiting room. cm10 11:28 Foot Left 3 View XRAY In Process Unspecified. EDMS 12:05 Initial lab(s) drawn, by me, sent to lab. First set of blood cultures drawn by me. bc6 12:08 CRP Sent. bc6 12:08 Blood Culture Adult (2) Sent. bc6 12:08 Basic Metabolic Panel Sent. bc6 12:08 CBC with Diff Sent. bc6 12:09 LFT's Sent. bc6 12:09 Magnesium Sent. bc6 12:09 NT PRO-BNP Sent. bc6 12:09 PT-INR Sent. bc6 12:09 Troponin HS Sent. bc6 12:09 Inserted saline lock: 20 gauge in left antecubital area, using aseptic technique. Blood bc6 collected. Flushed with 10 mL NS. 12:24 Pt refused EKG. bc6 12:52 Patient placed in an exam room, on a stretcher. ll1 13:14 Ellis, Jenny, RN is Primary Nurse. ld1 13:14 Patient has correct armband on for positive identification. Placed in gown. Bed in low ld1 position. Call light in reach. Side rails up X2. 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 Pulse ox on. NIBP on. Door closed. Noise minimized. Warm blanket given. 13:14 Blood Culture Adult (2) Sent. ld1 13:14 No provider procedures requiring assistance completed. ld1 13:59 Dominik Padron MD is Hospitalizing Provider. praveena 14:54 US Extremity Venous W Compression Jose Cruz In Process Unspecified. EDMS 14:54 US LE Arterial Bilateral In Process Unspecified. EDMS Administered Medications: 13:14 Drug: NS 0.9% IV 500 ml 500 ml IV at 1 bolus once; to be given as a bolus over 30 ld1 minutes Volume: 500 ml; Route: IV; Rate: 1 bolus; Site: left antecubital; 15:14 Drug: Piperacillin-Tazobactam IVPB 3.375 grams IVPB once over 60 mins; (mix in NS 100 ld1 mL) Route: IVPB; Infused Over: 60 mins; Site: left antecubital; 15:14 Drug: Aspirin PO Chewable Tablet 324 mg PO once; 81 mg tablets x 4 Route: PO; ld1 15:14 Drug: Metoprolol PO 50 mg PO once Route: PO; ld1 15:17 Drug: Enoxaparin Sub-Q 1 mg/kg Sub-Q once Route: Sub-Q; Site: right upper arm; ld1 15:17 Drug: Famotidine IVP 20 mg IVP once; dilute with 10 mL 0.9% NaCl; give over 2 minutes ld1 Route: IVP; Site: right antecubital; 16:03 Drug: vancoMYCIN IVPB 1 grams IVPB once over 2 hrs Route: IVPB; Infused Over: 2 hrs; ld1 Site: left antecubital; Medication: 13:14 VIS not applicable for this client. ld1 Outcome: 14:01 Decision to Hospitalize by Provider. praveena 17:43 Patient left the ED. ld1 Signatures: Dispatcher [employer] EDIfeanyi Taveras MD MD cha Lewis, Lynsay, RN RN ll1 Jenny Ellis, RAFIQ RN ld1 Mee Moar Clarissa, RN RN cm10 Shalini Mcqueen al6
--- NOTE | 2024-04-10 14:57 | RAD REPORT ---
EXAMINATION: US LOWER EXTREMITY VENOUS DOPPLER BILATERAL CLINICAL INDICATION: Female, 63 years old.PAIN TECHNIQUE: Complete bilateral duplex sonography of the lower extremity veins was performed. The exami nation included compression for vein patency, color Doppler imaging and flow augmentation in response to distal compression of the distal external iliac, common femoral, femoral, popliteal, jordy rubin, tibial and great saphenous veins. [id number]. COMPARISON: No prior exams FINDINGS: Duplex sonography imaging demonstrates all deep examined to be fully compressible with spontaneous, p hasic and augmented flow bilaterally. IMPRESSION: No evidence of deep venous thrombosis seen in either lower extremity.
--- NOTE | 2024-04-10 15:09 | P.HP ---
Certification for Inpatient Patient admitted to: Inpatient Practitioner: I am a practitioner with admitting privileges, knowledge of patient current condition, hospital course, and medical plan of care. Services: Services provided to patient in accordance with Admission requirements found in Title 42 Section 412.3 of the Code of Federal Regulations Patient History Date of Service: 04/10/24 Reason for admission: NSTEMI, left great toe osteomyelitis History of Present Illness: 63-year-old female with a past medical history of diabetes, hypertension, hyperlipidemia, chronic pain from peripheral neuropathy, former smoker, presents to the emergency room with left great toe swelling and tenderness. She reports difficulty walking, pain with weightbearing. She reports recently noticed her foot was infected, reports being diagnosed with diabetes 1 year ago. She denies fever, chills, chest pain, abdominal pain, edema. ER evaluation troponin 2587, no chest pain, CRP 62.30, BNP 839, glucose 157, no leukocytosis, mild early left shift 74.0, left foot x-ray osseous lucency involving the big toe distal phalanx and the at the lateral base, raising concern for osteomyelitis, lower extremity arterial bilateral Doppler, no arterial stenosis in the left lower extremity, plan to admit for osteomyelitis of the left great toe, with surgery to consult, NSTEMI, with cardiology to consult. - Past Medical/Surgical History -: Hypertension -: Hyperlipidemia -: Diabetes -: Denies - Social History Smoking Status: Former smoker Alcohol use: No CD- Drugs: Yes Caffeine use: Yes Review of Systems 10-point ROS is otherwise unremarkable Physical Examination - Physical Exam General: Alert, In no apparent distress, Oriented x3 HEENT: Atraumatic, Normocephalic, PERRLA Neck: Supple, 2+ carotid pulse no bruit, JVD not distended Respiratory: Clear to auscultation bilaterally, Normal air movement Cardiovascular: No edema, Normal pulses, Regular rate/rhythm, Normal S1 S2 Capillary refill: <2 Seconds Gastrointestinal: Normal bowel sounds, Soft and benign, Non-distended Musculoskeletal: No clubbing, No swelling Integumentary: Other (Left great toe cellulitis, erythema) Neurological: Normal speech, Normal strength at 5/5 x4 extr, Cranial nerves 3-12 intact, Other - Studies Laboratory Data (last 24 hrs) 04/10/24 04/10/24 04/10/24 12:05 12:05 12:05 WBC 10.70 Hgb 12.3 Hct 35.2 L Plt Count 306 PT 13.8 H INR 1.22 Sodium 136 Potassium 3.5 BUN 15 Creatinine 0.69 Glucose 157 H Magnesium 1.8 Total Bilirubin 0.5 AST 11 L ALT < 14 Alkaline Phosphatase 91 Assessment and Plan - Problems (Diagnosis) (1) NSTEMI (non-ST elevated myocardial infarction) Current Visit: Yes Status: Acute (2) Osteomyelitis of great toe of left foot Current Visit: Yes Status: Acute (3) Diabetes mellitus type 2 with complications Current Visit: Yes Status: Acute (4) Hypertension Current Visit: Yes Status: Acute Qualifiers: Hypertension type: unspecified Qualified Code(s): I10 - Essential (primary) hypertension (5) Hyperlipidemia Current Visit: Yes Status: Acute Qualifiers: Hyperlipidemia type: unspecified Qualified Code(s): E78.5 - Hyperlipidemia, unspecified (6) Peripheral neuropathy Current Visit: Yes Status: Acute - Plan 63-year-old female with a past medical history of diabetes, hypertension, hyperlipidemia, chronic pain from peripheral neuropathy, former smoker, presents to the emergency room with left great toe swelling and tenderness. She reports difficulty walking, pain with weightbearing. She reports recently noticed her foot was infected, reports being diagnosed with diabetes 1 year ago. She denies fever, chills, chest pain, abdominal pain, edema. ER evaluation troponin 2587, no chest pain, CRP 62.30, BNP 839, glucose 157, no leukocytosis, mild early left shift 74.0, left foot x-ray osseous lucency involving the big toe distal phalanx and the at the lateral base, raising concern for osteomyelitis, lower extremity arterial bilateral Doppler, no arterial stenosis in the left lower extremity, Admit to MedSurg -Cardiology to consult -Therapeutic Lovenox for NSTEMI -Surgery to consult for left great toe osteomyelitis -IV antibiotics, as needed analgesics -Blood glucose monitoring -Sliding scale insulin -A1c in the a.m. -Trend cultures, -Lipid panel Full code DVT lovenox GI PPI Discharge Plan: Home - Advance Directives Does patient have a Living Will: No Does patient have a Durable POA for Healthcare: No - Code Status/Comfort Care Code Status: Full Code Critical Care: No Time Spent Managing Pts Care (In Minutes): 55
--- NOTE | 2024-04-10 15:32 | RAD REPORT ---
EXAM: Lower Extremity Arterial Bilat HISTORY: PAIN COMPARISON: None TECHNIQUE: Multiplanar grayscale and color Doppler images were obtained and a bilateral lower extrem ity arterial ultrasound. Spectral analysis of the Doppler waveforms were performed. FINDINGS: Right lower extremity: Common femoral artery: Triphasic Superficial femoral artery: Triphasic Popliteal artery: Monophasic Posterior tibial artery: Monophasic Dorsalis pedis artery: Monophasic Left lower extremity: Common femoral artery: Biphasic Superficial femoral artery: Biphasic Popliteal artery: Triphasic Posterior tibial artery: Biphasic Dorsalis pedis artery: Biphasic IMPRESSION: Monophasic flow in the right lower extremity involving the popliteal artery and below the knee vessel s consistent with moderate to severe narrowing. No arterial stenosis in the left lower extremity. Multiphasic waveforms.
[2024-04-10] MEDS ORDERED: ACETAMINOPHEN 500 MG TAB PO PRN (15:47)
[2024-04-10] MEDS ORDERED: ALPRAZOLAM 0.25 MG TABLET PO PRN (15:47)
[2024-04-10] MEDS ORDERED: ONDANSETRON 4 MG/2 ML VIAL IV PRN (15:47)
[2024-04-10] MEDS ORDERED: MORPHINE *EXTENDED RELEASE* 15 MG TAB PO PRN (16:46)
[2024-04-10] MEDS ORDERED: NITROGLYCERIN 0.4 MG/TAB SL PRN (16:48)
[2024-04-10] MEDS ORDERED: GLUCAGON 1 MG/VIAL IM PRN (16:57)
[2024-04-10] MEDS ORDERED: D10W 125 ML IV PRN (16:57)
[2024-04-10] MEDS: INSULIN REGULAR (HUMAN) 100 UNIT/ML SQ SCH (17:00)
[2024-04-10 18:13] VITALS: BMI 29.0
[2024-04-10] MEDS: PIPER TAZO 3.375 GM in NA CHLORIDE 0.9% 100 ML IV SCH (20:18)
[2024-04-10] MEDS: GABAPENTIN 300 MG CAP PO SCH (20:18)
[2024-04-10] MEDS: ATORVASTATIN 40 MG TAB PO SCH (20:18)
[2024-04-11] MEDS: ENOXAPARIN 80 MG/0.8 ML SQ SCH (01:23)
[2024-04-11 04:39] LABS: Absolute Eosinophils 0.1 K/uL (0-0.5); Absolute Lymphocytes (CBC) 1.9 K/uL (0.7-4.9); Absolute Monocytes 0.6 K/uL (0.1-1.3); Absolute Neutrophil 5.1 K/uL (1.8-8.0); Basophils % 0.6 % (0-1.3); Eosinophils % 1.7 % (0-4.4); Hematocrit 30.9 % (36.0-45.0); Hemoglobin 10.8 g/dL (12.0-15.0); MCHC 35.1 g/dL (32.0-36.0); MPV 7.4 fL (7.6-11.3); Monocytes % 7.7 % (3.3-12.3); Platelets 258 thou/uL (152-406); RBC Red Blood Cell Count 3.28 M/uL (3.86-4.86); Red Cell Distribution Width 13.6 % (12.1-15.2)
[2024-04-11 05:13] LABS: Anion Gap 6.6 mEq/L (5.0-15.0); Magnesium 1.9 mg/dL (1.6-2.4); Phosphorus 3.4 mg/dL (2.5-4.9); Potassium 3.6 mEq/L (3.5-5.1)
[2024-04-11] MEDS: Levofloxacin 750mg IV 750 MG/150 ML BAG IV SCH (07:30)
[2024-04-11] MEDS: ASPIRIN EC 81 MG TAB PO SCH (09:31)
[2024-04-11] MEDS ORDERED: HEPARIN 10,000 UNIT/10 ML VIAL IV ONE (10:17)
[2024-04-11] MEDS ORDERED: LIDOCAINE 1% 20 ML MDV ONE (10:17)
[2024-04-11] MEDS ORDERED: HEPA 1000U/500MLS 2,000 UNIT/1,000 ML BAG IV ONE (10:17)
[2024-04-11] MEDS ORDERED: ATROPINE SULF 1 MG/10 ML SYR IV ONE (10:17)
[2024-04-11] MEDS ORDERED: HEPARIN 5000 UNIT/ML 1 ML VIAL ONE (10:18)
[2024-04-11] MEDS: VANCOMYCIN 1.5 GM in NA CHLORIDE 0.9% 500 ML IVPB SCH (10:30)
[2024-04-11] MEDS ORDERED: ASPIRIN 325 MG TAB ONE (10:31)
[2024-04-11] MEDS ORDERED: CLOPIDOGREL 75 MG TABLET ONE (10:31)
[2024-04-11] MEDS ORDERED: TICAGRELOR 90 MG TABLET PO ONE (10:31)
[2024-04-11] MEDS ORDERED: NA CHLORIDE 0.9% 500 ML ONE (10:36)
[2024-04-11] MEDS ORDERED: MIDAZOLAM HCL 2 MG/2 ML INJ ONE (11:07)
[2024-04-11] MEDS ORDERED: FENTANYL CITR 100 MCG/2 ML ONE (11:07)
--- NOTE | 2024-04-11 12:11 | P.CNS ---
Date of Consult: 04/11/24 Chief Complaint: NSTEMI, left great toe osteomyelitis History of Present Illness: Patient with PMH of HTN, DM, Presented with toe infection, possible osteomyelitis, denies having any chest pain, no nausea, no vomitting, no breathing problems, blood work shows elevated troponin so cardiology were consulted. Allergies No Known Allergies Allergy (Unverified 04/10/24 16:56) Home medications list reviewed: Yes Home Medications: Amitriptyline [Elavil*] 25 mg PO BEDTIME 04/10/24 Carbidopa/Levodopa [Carbidopa-Levo ER 25-100 Tab] 1 each PO BEDTIME 04/10/24 Carvedilol [Coreg] 12.5 mg PO BID 04/10/24 Diclofenac Sodium [Voltaren] 75 mg PO BID 04/10/24 Gabapentin 600 mg PO TID 04/10/24 Morphine *Extended Release* [MS Contin] 30 mg PO TID PRN 04/10/24 Semaglutide [Ozempic] 0.5 mg SQ EVERY 7TH DAY 04/10/24 glipiZIDE [Glipizide] 10 mg PO BID 04/10/24 - Past Medical/Surgical History -: Hypertension -: Hyperlipidemia -: Diabetes -: Denies - Social History Alcohol use: No CD- Drugs: Yes Caffeine use: Yes Review of Systems 10-point ROS is otherwise unremarkable Physical Examination Temp Pulse Resp BP Pulse Ox 98.2 F 88 12 163/78 H 100 04/11/24 08:00 04/11/24 08:00 04/11/24 08:00 04/11/24 08:00 04/11/24 08:00 General: Alert, In no apparent distress HEENT: Atraumatic, PERRLA, Mucous membr. moist/pink, EOMI, Sclerae nonicteric Neck: Supple, 2+ carotid pulse no bruit, No LAD, Without JVD or thyroid abnormality Respiratory: Clear to auscultation bilaterally, Normal air movement Cardiovascular: Regular rate/rhythm, Normal S1 S2 Gastrointestinal: Normal bowel sounds, No tenderness Musculoskeletal: No tenderness Integumentary: No rashes Neurological: Normal gait, Normal speech, Normal tone, Normal affect Lymphatics: No axilla or inguinal lymphadenopathy Laboratory Data (last 24 hrs) 04/10/24 04/10/24 04/10/24 12:05 12:05 12:05 WBC 10.70 Hgb 12.3 Hct 35.2 L Plt Count 306 PT 13.8 H INR 1.22 Sodium 136 Potassium 3.5 BUN 15 Creatinine 0.69 Glucose 157 H Magnesium 1.8 Total Bilirubin 0.5 AST 11 L ALT < 14 Alkaline Phosphatase 91 - Problems (1) NSTEMI (non-ST elevated myocardial infarction) Current Visit: Yes Status: Acute Plan: Patient cardiac enzymes were significantly elevated so coronary angiogram done and that shown significant mid LAD disease 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 ASA 81 mg daily Heparin drip to be resumed 2 hours after TR band removal Transfer as inpatient for CABG evaluation. (2) Osteomyelitis of great toe of left foot Current Visit: Yes Status: Acute Plan: abx per primary team. (3) Hypertension Current Visit: Yes Status: Acute Plan: continue to monitor for now. Qualifiers: Hypertension type: unspecified Qualified Code(s): I10 - Essential (primary) hypertension (4) Hyperlipidemia Current Visit: Yes Status: Acute Plan: start lipitor 40 mg daily Qualifiers: Hyperlipidemia type: unspecified Qualified Code(s): E78.5 - Hyperlipidemia, unspecified
[2024-04-11 14:19] VITALS: O2SAT 96
--- NOTE | 2024-04-11 14:36 | P.PN ---
Date of Service: 04/11/24 subjective Status post coronary angiogram for NSTEMI, stent placed to the RCA, plan to transfer for CABG hep gtt to resume 2 hours after TR band removal Review of Systems 10-point ROS is otherwise unremarkable Physical Examination - Physical Exam General: Alert, In no apparent distress, Oriented x3 HEENT: Atraumatic, Normocephalic, PERRLA Neck: Supple, 2+ carotid pulse no bruit, JVD not distended Respiratory: Clear to auscultation bilaterally, Normal air movement Cardiovascular: No edema, Normal pulses, Regular rate/rhythm, Normal S1 S2 Capillary refill: <2 Seconds Gastrointestinal: Normal bowel sounds, Soft and benign, Non-distended Musculoskeletal: No clubbing, No swelling Integumentary: Other (Left great toe cellulitis, erythema) Neurological: Normal speech, Normal strength at 5/5 x4 extr, Cranial nerves 3-12 intact, Other Assessment and Plan - Problems (Diagnosis) (1) NSTEMI (non-ST elevated myocardial infarction) Current Visit: Yes Status: Acute (2) Osteomyelitis of great toe of left foot Current Visit: Yes Status: Acute (3) Diabetes mellitus type 2 with complications Current Visit: Yes Status: Acute (4) Hypertension Current Visit: Yes Status: Acute Qualifiers: Hypertension type: unspecified Qualified Code(s): I10 - Essential (primary) hypertension (5) Hyperlipidemia Current Visit: Yes Status: Acute Qualifiers: Hyperlipidemia type: unspecified Qualified Code(s): E78.5 - Hyperlipidemia, unspecified (6) Peripheral neuropathy Current Visit: Yes Status: Acute - Plan 63-year-old female with a past medical history of diabetes, hypertension, hyperlipidemia, chronic pain from peripheral neuropathy, former smoker, presents to the emergency room with left great toe swelling and tenderness. She reports difficulty walking, pain with weightbearing. She reports recently noticed her foot was infected, reports being diagnosed with diabetes 1 year ago. She denies fever, chills, chest pain, abdominal pain, edema. ER evaluation troponin 2587, no chest pain, CRP 62.30, BNP 839, glucose 157, no leukocytosis, mild early left shift 74.0, left foot x-ray osseous lucency involving the big toe distal phalanx and the at the lateral base, raising concern for osteomyelitis, lower extremity arterial bilateral Doppler, no arterial stenosis in the left lower extremity, Ad[facility] to [facility] -Cardiology to consult -Therapeutic Lovenox for NSTEMI -Surgery to consult for left great toe osteomyelitis -IV antibiotics, as needed analgesics -Blood glucose monitoring -Sliding scale insulin -A1c in the a.m. -Trend cultures, -Lipid panel Full code DVT lovenox GI PPI Discharge Plan: Home - Advance Directives Does patient have a Living Will: No Does patient have a Durable POA for Healthcare: No - Code Status/Comfort Care Code Status: Full Code Critical Care: No Time Spent Managing Pts Care (In Minutes): 35
--- NOTE | 2024-04-11 14:43 | P.DS ---
Admission Date: 04/10/24 Discharge Date: 04/11/24 Disposition: [facility] Discharge Condition: GOOD Reason for Admission: NSTEMI, left great toe osteomyelitis - Problems (1) NSTEMI (non-ST elevated myocardial infarction) Status: Acute (2) Osteomyelitis of great toe of left foot Status: Acute (3) Diabetes mellitus type 2 with complications Status: Acute (4) Hypertension Status: Acute Qualifiers: Hypertension type: unspecified Qualified Code(s): I10 - Essential (primary) hypertension (5) Hyperlipidemia Status: Acute Qualifiers: Hyperlipidemia type: unspecified Qualified Code(s): E78.5 - Hyperlipidemia, unspecified (6) Peripheral neuropathy Status: Acute Brief History of Present Illness: 63-year-old female with a past medical history of diabetes, hypertension, hyperlipidemia, chronic pain from peripheral neuropathy, former smoker, presents to the emergency room with left great toe swelling and tenderness. She reports difficulty walking, pain with weightbearing. She reports recently noticed her foot was infected, reports being diagnosed with diabetes 1 year ago. She denies fever, chills, chest pain, abdominal pain, edema. ER evaluation troponin 2587, no chest pain, CRP 62.30, BNP 839, glucose 157, no leukocytosis, mild early left shift 74.0, left foot x-ray osseous lucency involving the big toe distal phalanx and the at the lateral base, raising concern for osteomyelitis, lower extremity arterial bilateral Doppler, no arterial stenosis in the left lower extremity, plan to admit for osteomyelitis of the left great toe, with surgery to consult, NSTEMI, with cardiology to consult. General: Alert, In no apparent distress HEENT: Atraumatic, PERRLA, Mucous membr. moist/pink, EOMI, Sclerae nonicteric Neck: Supple, 2+ carotid pulse no bruit, No LAD, Without JVD or thyroid abnormality Respiratory: Clear to auscultation bilaterally, Normal air movement Cardiovascular: Regular rate/rhythm, Normal S1 S2 Gastrointestinal: Normal bowel sounds, No tenderness Musculoskeletal: No tenderness Integumentary: No rashes Neurological: Normal gait, Normal speech, Normal tone, Normal affect Lymphatics: No axilla or inguinal lymphadenopathy Hospital Course: 63-year-old female with a past medical history of diabetes, hypertension, hyperlipidemia, chronic pain from peripheral neuropathy, former smoker, presents to the emergency room with left great toe swelling and tenderness. She reports difficulty walking, pain with weightbearing. She reports recently noticed her foot was infected, reports being diagnosed with di abetes 1 year ago. She denies fever, chills, chest pain, abdominal pain, edema. ER evaluation troponin 2587, no chest pain, CRP 62.30, BNP 839, glucose 157, no leukocytosis, mild early left shift 74.0, left foot x-ray osseous lucency involving the big toe distal phalanx and the at the lateral base, raising concern for osteomyelitis, lower extremity arterial bilateral Doppler, no arterial stenosis in the left lower extremity, plan to admit for osteomyelitis of the left great toe, with surgery to consult, NSTEMI, with cardiology to consult. Patient is status post angiogram, significant disease to the mid LAD, to transfer to [place] for CABG evaluation. Plan to initiate heparin drip 2 hours after TR band removal, Assessment NSTEMI, significantly elevated troponins, status post angiogram with Dr. Armijo plan to transfer to [place] for CABG evaluation Osteomyelitis of the left great toe, surgery consulted, for evaluation, currently on IV antibiotics, Hypertension resume appropriate home Hyperlipidemia Diabetes type 2-sliding scale insulin, Accu-Cheks,-hemoglobin A1c 7 point Continue home medicines as previously prescribed GOAL: Clear understanding of disease process INSTRUCTIONS: Physician Discharge Instructions: Transferred to [place] for CABG evaluation -Follow-up with PCP in 1 to 2 weeks -Please call Dr. Padron at [phone] if any questions regarding hospital stay -Please call nursing station at [phone] if any nursing or medication questions -Return to the emergency room if symptoms worsen Diet: ADA, low sodium Activity: Fall precautions Vital Signs/Physical Exam: Temp Pulse Resp BP Pulse Ox 98.2 F 74 16 131/75 100 04/11/24 08:00 04/11/24 13:55 04/11/24 13:55 04/11/24 13:55 04/11/24 08:00 Laboratory Data at Discharge: WBC 7.80 thou/uL (4.3-10.9) 04/11/24 04:12 Hgb 10.8 g/dL (12.0-15.0) L D 04/11/24 04:12 Hct 30.9 % (36.0-45.0) L 04/11/24 04:12 Plt Count 258 thou/uL (152-406) 04/11/24 04:12 PT 13.8 SECONDS (10.0-13.0) H 04/10/24 12:05 INR 1.22 04/10/24 12:05 Sodium 140 mEq/L (136-145) 04/11/24 04:12 Potassium 3.6 mEq/L (3.5-5.1) 04/11/24 04:12 BUN 18 mg/dL (7-18) 04/11/24 04:12 Creatinine 0.62 mg/dL (0.55-1.02) 04/11/24 04:12 Glucose 158 mg/dL (74-106) H 04/11/24 04:12 Phosphorus 3.4 mg/dL (2.5-4.9) 04/11/24 04:12 Magnesium 1.9 mg/dL (1.6-2.4) 04/11/24 04:12 Total Bilirubin 0.5 mg/dL (0.2-1.0) 04/10/24 12:05 AST 11 U/L (15-37) L 04/10/24 12:05 ALT < 14 U/L (13-56) 04/10/24 12:05 Alkaline Phosphatase 91 U/L (45-117) 04/10/24 12:05 Triglycerides 136 mg/dL (<150) 04/11/24 04:12 Cholesterol 136 mg/dL (<200) 04/11/24 04:12 HDL Cholesterol 32 mg/dL (40-60) L 04/11/24 04:12 Cholesterol/HDL Ratio 4.25 04/11/24 04:12 Home Medications: Amitriptyline [Elavil*] 25 mg PO BEDTIME 04/10/24 Carbidopa/Levodopa [Carbidopa-Levo ER 25-100 Tab] 1 each PO BEDTIME 04/10/24 Carvedilol [Coreg] 12.5 mg PO BID 04/10/24 Diclofenac Sodium [Voltaren] 75 mg PO BID 04/10/24 Gabapentin 600 mg PO TID 04/10/24 Morphine *Extended Release* [MS Contin] 30 mg PO TID PRN 04/10/24 Semaglutide [Ozempic] 0.5 mg SQ EVERY 7TH DAY 04/10/24 glipiZIDE [Glipizide] 10 mg PO BID 04/10/24 Diet: AHA Activity: Fall precautions Followup: Geronimo Rodriguez MD [Primary Care Provider] - Rehan Payne MD [ACTIVE - CAN ADMIT] - Time spent managing pt's care (in minutes): 55
[2024-04-11] MEDS: METHYLPREDNISOLONE 125 MG INJ IV ONE (16:32)
[2024-04-11] MEDS: COLCHICINE 0.6 MG TAB PO SCH (16:32)
[2024-04-11 16:43] VITALS: BP 137/65; TEMP 98.1
--- NOTE | 2024-04-11 21:16 | OP ---
Date of Procedure: 04/11/2024 Surgeon: Rehan Payne Procedure Performed: Selective coronary angiogram. Indication For Procedure: [id number]. Complications: None. Estimated Blood Loss: Less than 50 cc. Access: Right radial, closed by TR band. Sedation Time: 20 minutes with 1 of Versed and 25 of fentanyl. Description Of Procedure: After risks, benefits, and alternatives were explained to the patient, the patient agreed to proceed with procedure and signed informed consent. The patient was brought back to the boat laborer, prepped and placed in sterile fashion. Time-out was performed. Sedation was admini stered. Next, right radial access was obtained using ultrasound-guided micropuncture technique. Tig er 4 catheter was advanced over J-wire to the aortic root. Selective angiogram was done using the sa me catheter. At the end of procedure, catheter was pulled back to the nonselective angiogram of left subclavian and RUSH. At the end of procedure, catheter was removed over a J-wire. Sheath was remov ed. TR band was applied. Hemostasis was achieved. The patient was moved back to recovery in stable condition. Findings: 1. Left main: Normal. 2. LAD: Calcified with mid 95% disease, then mid to distal mild luminal irregularities. 3. Diagonal 1: Proximal 60% disease, small artery. 4. Left circumflex/ramus: Mild luminal irregularities. 5. RCA: Mid [employer] W[employer] WORKER with [id number] collaterals into RPDA. 6. Left subclavian artery/RUSH: Patent. 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 The plan is to transfer to [facility] for possible CABG evaluation. DIEGO/JANNETH Voice ID: [id number] Report ID: [id number]
== END 2024-04-11 17:22 | disposition short-term general hospital (02) | DRG 637 ==
LOC: ER 10:51 → ERHOLD 15:41 → 2ND 16:18
PROVIDERS: ADMIT Hospitalist; ATTEND Hospitalist
PROC: 4A023N7 Measurement of Cardiac Sampling and Pressure, Left Heart, Percutaneous Approach (ICD-10-PCS; principal; 2024-04-11)
PROC: B2111ZZ Fluoroscopy of Multiple Coronary Arteries using Low Osmolar Contrast (ICD-10-PCS; 2024-04-11)
DX: E11.69 Type 2 diabetes mellitus with other specified complication (principal); I21.4 Non-ST elevation (NSTEMI) myocardial infarction; M86.172 Other acute osteomyelitis, left ankle and foot; L03.032 Cellulitis of left toe; E11.42 Type 2 diabetes mellitus with diabetic polyneuropathy; E11.621 Type 2 diabetes mellitus with foot ulcer; L97.529 Non-pressure chronic ulcer of other part of left foot with unspecified severity; I10 Essential (primary) hypertension; Z79.84 Long term (current) use of oral hypoglycemic drugs; Z79.02 Long term (current) use of antithrombotics/antiplatelets; Z79.85 Long-term (current) use of injectable non-insulin antidiabetic drugs; Z79.899 Other long term (current) drug therapy; Z87.891 Personal history of nicotine dependence
CPT/HCPCS: 36415; 76937; 80048; 80061; 80076; 82947; 83036; 83735; 83880; 84100; 84484; 85025; 85610; 86140; 87040; 93005; 93454; 93925; 93970; 96372; 99152; 99153; 99285; C1893; J0461; J1644; J2003; J2250; J2543; J2919; J3010; J3370; J7040; J7050; Q9966